=== PATIENT | male | born 1985 | race Caucasian/White ===

== ENCOUNTER 2018-11-19 15:10 | Emergency (ER) | payer SELFPAY ==
[~2018-11-19] VITALS: Ht 172.7 cm; Wt 86.2 kg
--- NOTE | 2018-11-19 15:13 | NUR ---
Patient BIBA ACLS accompanied by Kranthi MIGUEL, transferredo bed 10. Dr. Cai, Dr. Martinez, RT and RN evaluating patient at bedside.
[2018-11-19 15:14] VITALS: BP 133/108
[2018-11-19] MEDS ORDERED: NACL 0.9% 1,000 ML IV ONE (15:15)
--- NOTE | 2018-11-19 15:20 | NUR ---
dinero catheter placed, urine sample collected.
--- NOTE | 2018-11-19 15:25 | NUR ---
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 PT UNRESPONSIVE AND INCOHERENT. RESPIRATIONS LABORED AND PT GASPING, LUNGS CLEAR BILAT. CHEMICAL CHOUDHURY NOTED TO LIPS, NECK, GENITAL AREA AND BUTTOCKS. PT VOMITING/HEAVING. EMERGENCY INTUBATION PERFORMED BY DR. ZACARIAS AT BEDSIDE. SKIN IS COOL & CLAMMY; LUNGS CLEAR BL; HR TACHY AND REGULAR; PATIENT POSITIONED FOR COMFORT; HOB ELEVATED; BEDRAILS UP X2; BED DOWN. ER MD MADE AWARE OF PT STATUS.
--- NOTE | 2018-11-19 15:30 | NUR ---
1521 STARTED ATOMADATE 20 MG 1524 ATOMADATE 10 MG 1520 OP AIRWAY 1526 ET 7.5 23 LIP LINE VECURONEUM 10 MG 1530
--- NOTE | 2018-11-19 15:35 | NUR ---
PT BIB EMS POISON INGESTION ET TUBE SIZE 7.5 SECURED 23 CM ORAL AIRWAY PLACED Addendum: 11/19/18 at 1740 by Nidhi Conroy RT PTS PETCO IS 35MM HG
--- NOTE | 2018-11-19 15:37 | NUR ---
X-RAY AT BEDSIDE
[2018-11-19] MEDS ORDERED: PROPOFOL 200 MG/20 ML VIAL IV ONE ×2 (15:39→18:10)
[2018-11-19 15:40] VITALS: BP 133/108
[2018-11-19 15:41] LABS: BILIRUBIN,URINE NEGATIVE (NEGATIVE); BLOOD, URINE 2+ (NEGATIVE); COLOR,URINE YELLOW (YELLOW); LEUKOCYTE ESTERASE ,URINE 1+ (NEGATIVE); NITRITE, URINE NEGATIVE (NEGATIVE); UGLUCOSE NEGATIVE (NEGATIVE)
--- NOTE | 2018-11-19 15:45 | NUR ---
CALLED POISON CONTROL. TALKED TO [facility]. WATCH FOR CHOUDHURY IN ESOPHAGEOUS CHOUDHURY IN THE MOUTH NEED G.I. CONSULT OPEN LESIONS IN THE MOUTH SUPPORT CARE FLUID PENETRATION DIFFICULT INTUBATION
[2018-11-19 15:47] LABS: BARBITURATE, URINE NEG. ng/ml (NEG <=200); BENZODIAZEPINE, URINE NEG. ng/mL (NEG <=200); CANNABINOID, URINE NEG. ng/mL (NEG <=50); COCAINE, URINE NEG. ng/mL (NEG <=300); OPIATE, URINE NEG. ng/mL (NEG <=2000); PHENCYCLIDINE SCREEN,URINE NEG. ng/mL (NEG <=25)
--- NOTE | 2018-11-19 15:52 | NUR ---
STARTING HADLEY FAUSTIN
[2018-11-19 15:59] LABS: HEMATOCRIT 49.3 % (36-52); HEMOGLOBIN 16.9 g/dL (12.0-18.0); MEAN CORPUSCULAR HEMOGLOBIN 30 pg (27-31); MEAN CORPUSCULAR HGB CONC 34 g/dL (33-37); PLATELET COUNT (AUTO) 205 K/uL (140-450); RED BLOOD CELL COUNT(AUTO) 5.67 MIL/uL (4.20-6.10); WHITE BLOOD COUNT (AUTO) 22.5 K/uL (4.8-10.8)
--- NOTE | 2018-11-19 16:05 | NUR ---
[facility] CALLED, SPOKE TO YANIRA PHARMACIST, ORDER LABS FOR TYLENOL AND ASPIRIN, TOLD DR. ZACARIAS AND DR. ZACARIAS AWARE AND PUT ORDERS IN FOR PT
[2018-11-19 16:10] LABS: APPEARANCE,URINE HAZY (CLEAR)
[2018-11-19 16:23] LABS: LYMPHOCYTES % (MANUAL) 14 % (20-46); MONOCYTES % (MANUAL) 4 % (5-12)
[2018-11-19 16:25] LABS: ALBUMIN 3.8 g/dL (3.4-5.0); ANION GAP 18.7 (8-16); ASPARTATE AMINOTRANSFERASE 52 U/L (15-37); CARBON DIOXIDE 22.1 mmol/L (21-32); CHLORIDE 101 mmol/L (98-107); CREATININE 1.4 mg/dL (0.7-1.3); GFR ARICAN-AMERICAN 74 mL/min (>90); GLUCOSE 184 mg/dL (74-106); SODIUM SERUM 139 mmol/L (136-145); TOTAL BILIRUBIN 1.1 mg/dL (0.0-1.0); UREA NITROGEN, BLOOD 13 mg/dL (7-18)
[2018-11-19 16:27] LABS: RBC,URINE 11-20 (MOD) /HPF (0-5)
[2018-11-19 16:37] LABS: POTASSIUM 2.8 mmol/L (3.5-5.1)
[2018-11-19 16:52] LABS: PROTHROMBIN TIME 10.8 secs (10.8-13.4)
[2018-11-19] MEDS ORDERED: ETOMIDATE 20 MG/10 ML VIAL IVP ONE ×2 (17:15)
[2018-11-19] MEDS ORDERED: VECURONIUM 10 MG VIAL IVP ONE (17:15)
[2018-11-19] MEDS ORDERED: PIPERACILLIN/TAZOBACTAM 3.375 GM in DEXTROSE 5% 50 ML IV ONE (17:30)
[2018-11-19] MEDS ORDERED: NACL 0.9% 4,000 ML IV ONE (17:35)
[2018-11-19 17:50] VITALS: BP 134/89
[2018-11-19] MEDS ORDERED: PIPERACILLIN/TAZOBACTAM 3.375 GM VIAL IV ONE (17:59)
[2018-11-19 18:29] LABS: ACETAMINOPHEN < 0.5 ug/ml (10-30); SALICYLATE < 2.8 mg/dL (2.8-20.0)
--- NOTE | 2018-11-19 18:48 | NUR ---
Patient to be transferred to [facility]. Is being transferred due to HIGHER LEVEL OF CARE. Receiving facility has accepting physician and available space. ER physician has signed transfer form. Patient or responsible democrat has agreed to transfer and signed form. Patient belongings inventoried and will be sent with FAMILY. Copy of nursing notes, lab reports, EKG, Physicians Orders and X-rays to be sent with patient. Report called to UMANG at receiving facility. [employer] [facility] arrived for transfer.
[2018-11-19] MEDS ORDERED: PROPOFOL 1000 MG/100 ML PREMIX 100 ML IV ONE ×2 (19:20)
[2018-11-19 19:33] VITALS: BP 138/91
== END 2018-11-19 18:48 | disposition short-term general hospital (02) ==
LOC: MED 15:10
DX: T54.3X2A Toxic effect of corrosive alkalis and alkali-like substances, intentional self-harm, initial encounter (principal); T21.06XA Burn of unspecified degree of male genital region, initial encounter; Z63.0 Problems in relationship with spouse or partner; X08.8XXA Exposure to other specified smoke, fire and flames, initial encounter; Y92.009 Unspecified place in unspecified non-institutional (private) residence as the place of occurrence of the external cause; Y93.89 Activity, other specified; Y99.8 Other external cause status
CPT/HCPCS: 31500; 36415; 36600; 71045; 80053; 80305; 81001; 82803; 83735; 84484; 85025; 85610; 87070; 87086; 87205; 90471; 90715; 93005; 96365; 96366; 96368; 96375; 99291; 99292; G0480; G0482; J2543; J7030; Q0092; 87186; J2704; J3490